=== PATIENT | female | born 1990 | race Two or more races ===

== ENCOUNTER → 2018-01-05 | Emergency (ER) | payer OTHER ==
[~2018-01-05] VITALS: Ht 160 cm; Wt 49.9 kg
== END | disposition home or self-care (01) ==
LOC: ER 20:26
DX: N30.80 Other cystitis without hematuria (principal)

== ENCOUNTER 2018-03-09 13:45 | Outpatient (CLI) | payer OTHER | END 2018-03-09 13:49 | disposition home or self-care (01) | LOC: RAD 13:45 → MAMO-SONO 03-11 09:15 | DX: M51.87 Other intervertebral disc disorders, lumbosacral region (principal) ==

== ENCOUNTER 2018-03-11 09:36 | Outpatient (CLI) | payer OTHER | END 2018-03-11 09:43 | disposition home or self-care (01) | LOC: SONOGRAMA 09:36 | DX: R10.30 Lower abdominal pain, unspecified (principal); N63.10 Unspecified lump in the right breast, unspecified quadrant ==

== ENCOUNTER 2018-10-05 14:25 | Outpatient (CLI) | payer OTHER | END 2018-10-05 14:34 | disposition home or self-care (01) | LOC: SONOGRAMA 14:25 | DX: N60.21 Fibroadenosis of right breast (principal) ==

== ENCOUNTER 2019-06-01 13:31 | Outpatient (CLI) | payer OTHER | END 2019-06-01 13:49 | disposition home or self-care (01) | LOC: RAD 13:31 | DX: M54.5 Low back pain (principal) ==

== ENCOUNTER → 2019-07-25 | Outpatient (CLI) | payer OTHER | END | disposition home or self-care (01) | LOC: RAD 16:13 | DX: M54.5 Low back pain (principal); I10 Essential (primary) hypertension ==

== ENCOUNTER 2020-04-12 14:14 | Outpatient (CLI) | payer OTHER | END 2020-04-12 14:17 | disposition home or self-care (01) | LOC: RAD 14:14 | DX: M54.5 Low back pain (principal) ==

== ENCOUNTER 2020-07-03 13:50 | Outpatient (CLI) | payer OTHER | END 2020-07-03 14:06 | disposition home or self-care (01) | LOC: SONOGRAMA 13:50 | PROVIDERS: ATTEND General Practice | DX: E04.8 Other specified nontoxic goiter (principal) ==

== ENCOUNTER 2022-02-03 10:46 | Outpatient (CLI) | payer OTHER | END 2022-02-03 10:59 | disposition home or self-care (01) | LOC: SONOGRAMA 10:46 | PROVIDERS: ATTEND Obstetrics & Gynecology | DX: N64.4 Mastodynia (principal); N60.19 Diffuse cystic mastopathy of unspecified breast ==

== ENCOUNTER 2022-12-16 08:37 | Outpatient (CLI) | payer OTHER | END 2022-12-16 08:48 | disposition home or self-care (01) | LOC: SONOGRAMA 08:37 | PROVIDERS: ATTEND Obstetrics & Gynecology | DX: N64.4 Mastodynia (principal); N60.19 Diffuse cystic mastopathy of unspecified breast ==

== ENCOUNTER 2024-01-20 14:46 | Outpatient (CLI) | payer OTHER | END 2024-01-20 15:00 | disposition home or self-care (01) | LOC: MAMO-SONO 14:46 | DX: M25.552 Pain in left hip (principal); N64.4 Mastodynia; N60.19 Diffuse cystic mastopathy of unspecified breast ==

== ENCOUNTER 2024-02-20 21:52 | Emergency (ER) | payer OTHER ==
[~2024-02-20] VITALS: Ht 172.7 cm; Wt 58.1 kg
[2024-02-20] MEDS ORDERED: CEFAZOLIN SODIUM 1,000 MG VIAL IM STA (22:20)
== END 2024-02-20 22:31 | disposition home or self-care (01) ==
LOC: ER 21:53
DX: R30.0 Dysuria (principal)